=== PATIENT | female | born 1985 | race Caucasian/White ===

== ENCOUNTER 2018-04-30 17:35 | Emergency (ER) | payer SELFPAY | END 2018-04-30 19:05 | disposition left against medical advice (07) | LOC: ED 17:35 | DX: G43.909 Migraine, unspecified, not intractable, without status migrainosus (principal); R11.10 Vomiting, unspecified; R20.0 Anesthesia of skin; Z53.21 Procedure and treatment not carried out due to patient leaving prior to being seen by health care provider ==